=== PATIENT | female | born 2000 | race Caucasian/White ===

== ENCOUNTER 2024-11-15 15:32 | Emergency (ER) | payer SELFPAY ==
[2024-11-15 15:38] VITALS: BP 127/84
[2024-11-15 16:15] LABS: Hematocrit 43.0 % (37.0-47.0); Hemoglobin 14.7 g/dL (12.0-16.0); Mean Corp Hgb Conc. 34.2 g/dL (33.0-37.0); Mean Corpuscular Volume 83.7 fL (81.0-99.0); Nucleated Red Blood Cells % 0 %; Platelet Count 352 10^3/uL (130-400); Red Cell Dist. Width 13.9 % (11.5-14.5)
[2024-11-15 16:17] VITALS: BP 119/54
[2024-11-15 16:29] LABS: HCG, Serum Qualitative Screen Positive
[2024-11-15 16:32] LABS: ALT (SGPT) 17 U/L (0-35); AST (SGOT) 18 U/L (14-36); Albumin 4.8 g/dl (3.5-5.0); Alkaline Phosphatase 59 U/L (38-126); Blood Urea Nitrogen 5 mg/dl (7-17); Calcium 10.0 mg/dl (8.4-10.2); Carbon Dioxide 15 mmol/L (22-30); Chloride 104 mmol/L (98-107); Glucose 102 mg/dl (70-99); Lipase 156 U/L (23-300); Potassium 4.0 mmol/L (3.5-5.1); Sodium 134 mmol/L (135-145); Total Protein 7.8 g/dl (6.3-8.2); eGFR > 60.00
--- NOTE | 2024-11-15 16:40 | ED.GENMED ---
History of Present Illness
General
Chief Complaint: Seizure
Source: patient and family
Time Seen by Provider: 11/15/24 16:19
History of Present Illness
History of Present Illness:
24-year-old female presents to the emergency room after having an event which was thought to be a seizure. Patient has been experiencing nausea and vomiting for the past 2 or 3 days. No diarrhea. No fever or chills. She has some right upper
quadrant abdominal pain as well. Today while laying in bed she had a episode where her 'eyes rolled back in her head' as well as some shaking. She slowly returned to normal status. Patient also has severe anxiety which makes it difficult for her
to communicate with others when she is not familiar with them. She has multiple tics and nervous habits.
Past History
Past History
ED Past Medical History: Psychiatric (Anxiety and depression)
ED Past Surgical History: Urological (Bladder surgery) and Other (Ear tubes)
Social History
Tobacco: Non-smoker
Alcohol: None
Drug: None
Personal: Single
Living: with family
Phy Exam
Physical Exam
Physical Exam:
General: Awake, Alert, Oriented X3. Appears extremely anxious
Vitals: unremarkable
Head: Atraumatic
Eyes: Pupils equal, EOMI
Throat: Airway intact, no exudates
Neck: Trachea midline
Lungs: Clear and equal b/l
Heart: Regular rate, no murmurs
Abd: Soft, right upper quadrant abdominal tenderness to palpation, No pulsatile mass
Neuro: Nonfocal
Skin: Warm, dry, no rash
Extremities: pulses equal b/l, no edema
Course
Orders/Labs/Results
Orders:
Orders
11/15/24 15:45
Electrocardiogram (*1) Urgent
Reason for Study: Abdominal Pain
EKG- Treatment ONCE
Test Result ONCE
11/15/24 15:59
Complete Blood Count/With Diff Urgent
Comprehensive Metabolic Panel Urgent
HCG, Serum Qualitative Screen Urgent
Comment: Notify provider if positive test present
Lipase Urgent
11/15/24 16:37
US 1st Trimester Urgent
Comment:
Reason For Exam: abd pain + hcg
11/15/24 16:38
US Abdomen Complete/Upper Urgent
Comment:
Reason For Exam: ruq pain
11/15/24 16:45
0.9% Sodium Chloride 1000 ml [Nss] 1,000 ml IV BOLUS
Ondansetron Injectable [Zofran] 4 mg IV NOW STA
Abnormal Lab Results
11/15/24
15:59
WBC 15.3 H 10^3/uL
(4.8-10.8)
MPV 10.5 H fL
(7.4-10.4)
Abs Immat Gran (auto) 0.1 H 10^3/uL
(0-0.05)
Absolute Neuts (auto) 11.2 H 10^3/uL
(1.4-6.5)
Absolute Monos (auto) 1.3 H 10^3/uL
(0.1-0.6)
Lymphocytes % 17.2 L %
(20.5-51.1)
Sodium 134 L mmol/L
(135-145)
Carbon Dioxide 15 L mmol/L
(22-30)
BUN 5 L mg/dl
(7-17)
Creatinine 0.5 L mg/dL
(0.6-1.0)
Glucose 102 H mg/dl
(70-99)
11/15/24 15:59
11/15/24 15:59
Vital Signs
Initial and Last Documented VS:
Initial Vital Signs
Temp Pulse Resp BP Pulse Ox
97.6 F 68 16 127/84 98
11/15/24 15:38 11/15/24 15:38 11/15/24 15:38 11/15/24 15:38 11/15/24 15:38
Last Documented Vital Signs
Temp Pulse Resp BP Pulse Ox
97.6 F 68 21 120/66 97
11/15/24 15:38 11/15/24 16:17 11/15/24 16:17 11/15/24 17:03 11/15/24 17:30
MDM/Problems Addressed
Differential Diagnosis Includes:
Vasovagal event, seizure, anxiety
MDM/Problems Addressed:
Patient presents for evaluation after an event where she became unresponsive and seemed to have some shaking movement. Patient has been experiencing nausea vomiting over the past several days. Patient has a history of febrile seizures. She does
not have a history of epilepsy. She does have severe anxiety. Labs were drawn and the patient is noted to be . She states she has irregular menstrual periods that she cannot tell when her last menstrual period was actually.
*Radiology
Radiology exam reviewed: radiology read reviewed
*Pulse Oximetry
SaO2: 99
Oxygen Mode of Delivery: Room air
Patient hypoxic: no
*EKG
Interpreted by ED Provider?: Yes
Heart Rate: 80
Rate: normal
Rhythm: sinus
[place]: normal axis
Interval: normal interval
QRS Pattern: normal QRS
Ischemia: no ischemia
*Four Slide Machine Setter Interpretation
Rate: normal
Interpretation: normal
Heart Rate: 80
Rhythm: sinus
*Critical Care Note
Total Time (30-74mins, 75-104mins- exclusive of procedures): Not Applicable
ED Attending Note
-
Portions of this chart may have been created with voice recognition software.� Occasional wrong word or��sound alike� substitutions may have occurred due to the inherent limitations of voice recognition software.
Discharge Plan
Departure
Patient Disposition: Home (Routine Discharge)
Date of Disposition: 11/15/24
Time of Disposition: 20:08
Patient with high blood pressure during this ER visit?: No
Condition: Good
Discharge Problem:
, Vasovagal syncope, Nausea & vomiting
Instructions: Morning sickness, - The Second Month
Prescriptions:
New
ondansetron 4 mg tablet,disintegrating
4 mg PO Q8H PRN (Reason: nausea and vomiting) Qty: 20 0RF
PNV [id number] 90 mg iron- 1 mg-200 mg capsule
1 cap PO DAILY Qty: 30 0RF
No Action
metformin 500 mg tablet
500 mg PO BID
clonidine HCl 0.1 mg tablet
0.1 mg PO DAILYPRN PRN (Reason: anxiety)
calcium carbonate [Tums] 200 mg calcium (500 mg) Tablet,Chewable
400 mg PO DAILYPRN PRN (Reason: gerd)
Marijuana Vape
See Rx Instructions .ROUTE .COMPLEX
Rx Instructions:
'weed' vape pen that pt buys in [place]
Referrals:
Shikha Schulte, DO [Active, Gynecology]
NONE,* [Family Provider, Internal Medicine]
Activity Restrictions/Additional Instructions:
You were found to be 8 weeks which is why I believe you are having nausea and vomiting. The first line treatment for the nausea of is vitamin B6 once a day and doxylamine (Unasom) once a day. You can take the Zofran if this is
not working. Call [facility] to make an appointment.
Interventions
Interventions:
*Risk Screen - Suicide Last Done: 11/15/24 15:38
*General Assessment Last Done: 11/15/24 16:04
*Neglect/Abuse Screening Last Done: 11/15/24 15:38
*ED- Fall Risk Assessment Last Done: 11/15/24 18:18
*ED COVID-19 Vaccine History Last Done: 11/15/24 16:04
*Nursing Disposition Last Done: 11/15/24 20:31
ED- Cardiac Assessment Last Done: 11/15/24 16:04
ED- Neurological Assessment Last Done: 11/15/24 16:04
ED- Pulmonary Assessment Last Done: 11/15/24 16:04
Discharge Date and Time
Discharge Date/Time: 11/15/24 20:31
Print Language: ROMANSH
[2024-11-15] MEDS: ZOFRAN 4 MG IV (16:57)
[2024-11-15] MEDS: NSS 1000 IV (16:59)
[2024-11-15 17:03] VITALS: BP 120/66
== END 2024-11-15 20:31 | disposition home or self-care (01) ==
LOC: EMR 15:32
PROVIDERS: Emergency Medicine; EMERGENCY PHYSICIAN Emergency Medicine
DX: O99.891 Other specified diseases and conditions complicating pregnancy (principal); R55 Syncope and collapse; O99.341 Other mental disorders complicating pregnancy, first trimester; F41.9 Anxiety disorder, unspecified; Z3A.08 8 weeks gestation of pregnancy
CPT/HCPCS: 99284; 96374; 96361; 76700; 76801; 80053; 83690; 84703; 85025; 93005